=== PATIENT | male | born 1990 | race Caucasian/White ===

== ENCOUNTER 2019-02-07 10:53 | Emergency (ER) | payer OTHER ==
[~2019-02-07] VITALS: Ht 182.9 cm; Wt 90.9 kg
[2019-02-07] MEDS ORDERED: ACETAMINOPHEN 500 MG TAB PO ONE (11:45)
[2019-02-07] MEDS ORDERED: KETOROLAC 60 MG/2 ML VIAL (J1885) IM ONE (11:45)
--- NOTE | 2019-02-07 12:47 | REP ---
LEFT SHOULDER, THREE VIEWS: There is no evidence of an acute fracture, dislocation or intrinsic bone disease. IMPRESSION: No fracture or dislocation. Electronically Signed by Jose Alberto Ware MD 02/09/2019 07:46 A
--- NOTE | 2019-02-07 12:49 | REP ---
CERVICAL SPINE, AP AND LATERAL: Four AP and lateral views of the cervical spine are performed. There is no compression fracture or malalignment. There is normal cervical lordosis. There is no prevertebral soft tissue swelling. Disc spaces are well preserved. Small cervical ribs are seen bilaterally at the C7 level. IMPRESSION: No acute abnormality is detected. Electronically Signed by Jose Alberto Ware MD 02/09/2019 07:46 A
[2019-02-07] MEDS ORDERED: CYCL10TA PO (13:16)
[2019-02-07] MEDS ORDERED: KETO10TAB PO (13:16)
[2019-02-07] MEDS ORDERED: MEDI-453 MC (13:23)
[2019-02-07 13:38] VITALS: BP 123/64
== END 2019-02-07 13:40 | disposition home or self-care (01) ==
LOC: M ED 10:53
DX: S46.812A Strain of other muscles, fascia and tendons at shoulder and upper arm level, left arm, initial encounter (principal); M62.838 Other muscle spasm; X50.3XXA Overexertion from repetitive movements, initial encounter; Y92.89 Other specified places as the place of occurrence of the external cause; Y93.9 Activity, unspecified; Y99.1 Military activity
CPT/HCPCS: 72040; 73030; 96372; 99283; J1885